=== PATIENT | male | born 1945 ===

== ENCOUNTER 2020-05-15 06:52 | Observation (INO) | payer MEDICARE, OTHER ==
[2020-05-15] MEDS ORDERED: Nitroglycerin 2% Ointment 1 INCH/1 GM Packet ONE (07:25)
[2020-05-15] MEDS ORDERED: Aspirin Chewable 81 MG TAB ONE ×2 (07:25→08:15)
[2020-05-15 07:33] LABS: #Basophils 0.1 thou/uL (0.0-0.2); #Eosinphils 0.5 thou/uL (0.0-0.7); #Lymphocytes 1.4 thou/uL (1.20-3.40); #Monocytes 0.6 thou/uL (0.11-0.59); #Neutrophils 7.7 thou/uL (1.40-6.50); %Basophils 0.7 % (0.0-1.0); %Eosinophils 4.5 % (0.0-10.0); %Lymphocytes 14.1 % (21.0-51.0); %Monocytes 5.4 % (0.0-10.0); %Neutrophils 75.3 % (42.0-75.0); Hemoglobin 15.8 g/dL (14.0-18.0); Mean Corpuscular HGB CONC 33.8 g/dL (32.0-36.0); Mean Corpuscular Hemoglobin 34.2 pg (27.0-31.0); Mean Platelet Volume 7.9 fL (7.4-10.4); Platelet Count 204 thou/uL (130-400); RBC Distribution Width 12.2 % (11.5-14.5); Red Blood Cell (RBC) Count 4.63 mill/uL (4.70-6.10); White Blood Cell (WBC) Count 10.2 thou/uL (4.8-10.8)
--- NOTE | 2020-05-15 07:41 | RAD ---
EXAM: Single view of the chest HISTORY: Chest pain COMPARISON: 08/13/2018 FINDINGS: Single view of the chest shows a mildly enlarged but stable cardiomediastinal silhouette. T here is no evidence of consolidation, mass, or pleural effusion. Degenerative changes are seen in the spine. IMPRESSION: No evidence of acute cardiopulmonary disease
[2020-05-15 07:54] LABS: ALT (SGPT) 33 U/L (8-55); AST (SGOT) 17 U/L (5-34); Albumin 4.4 g/dL (3.4-4.8); Alkaline Phosphatase 68 U/L (40-110); Anion Gap 13 mmol/L (10-20); BUN (Urea Nitrogen) 18 mg/dL (8.4-25.7); Bilirubin, Total 0.7 mg/dL (0.2-1.2); Calc. Creatinine Clearance 0 mL/min (70-130); Calcium 8.9 mg/dL (7.8-10.44); Carbon Dioxide 26 mmol/L (23-31); Chloride 102 mmol/L (98-107); Estimated GFR-MDRD 62; Globulin 2.4 g/dL (2.4-3.5); Glucose 115 mg/dL (83-110); Lipase 50 U/L (8-78); Protein, Total 6.8 g/dL (5.8-8.1); Sodium 137 mmol/L (136-145)
--- NOTE | 2020-05-15 09:25 | PDOC.HHP ---
Hospitalist HPI - History of Present Illness Chest pain History of Present Illness: PCP: Dr. Sol 75-year-old male with past medical history significant for hypertension, HLD, smoking and obstructive sleep apnea (on CPAP) presents to the emergency department for the above complaint. The patient reports acute onset of chest pain at 0400 this morning. Located substernal and radiating to bilateral jaws, described as chest tightness, 5/10 on the pain scale, with no exacerbating or alleviating factors. The patient took 2 Tylenol tablets with no relief of symptoms. Since the pain persisted, the patient came to the ER for further evaluation. Patient denies any heart palpitations, swelling to lower extremities. Denies any shortness of breath or wheezing. He has no history of asthma or COPD. No history of DVT/PE. Denies any illicit drug use. Denies abdominal pain, vomiting, diarrhea. Denies fever or chills. ED Course: VITAL SIGNS [facility] May 15, 2020 06:53 CLINT Leal Daniel BP: 148/76, Pulse: 72, Resp: 20, Temp: 97.9 (Oral), Pain: 4, O2 sat: 93 on (Room Air), Time: 05/15/2020 06:53. VITAL SIGNS [facility] May 15, 2020 07:08 CLINT Shea Ashlee BP: 129/76, Pulse: 71, Resp: 19, O2 sat: 96 on (Room Air), Time: 05/15/2020 07:08 Medication administration: Nitro-Bid transdermal 1 inch Topical Given 07:59 05/15/2020 aspirin oral 324 mg Oral Given 07:58 05/15/2020 Hospitalist ROS - Review of Systems Constitutional: denies: fever, chills Cardiovascular: reports: chest pain. denies: palpitations, edema, light headedness Gastrointestinal: denies: nausea, vomiting, abdominal pain, diarrhea, melena, hematochezia Genitourinary: denies: dysuria, hematuria Neurological: denies: weakness, incoordination, change in speech All other systems reviewed; all pertinent +/- noted in HPI/Subj - Medication Medications: 1. Bystolic 5 mg p.o. nightly 2. Losartan 100 mg p.o. every morning. 3. Atorvastatin 20 mg p.o. nightly. 4. Torsemide 10 mg p.o. nightly. Allergies: NKDA Hospitalist History - Past Medical History Source: patient, family, RN notes reviewed Cardiac: reports: HTN Pulmonary: reports: Other (JIMENEZ compliant with home CPAP) Heme/Onc: reports: Cancer (prostate) - Past Surgical History Past Surgical History: reports: Other (Left surgery, Radical prostectomy) - Social History Smoking Status: Current every day smoker (1/2 ppd) Alcohol: reports: Occassional Drugs: reports: none Living Situation: With Family Occupation: Retired Activity level: independent ambulation - Exam General Appearance: NAD, awake alert. negative: ill appearing General - other findings: Comfortable Eye: anicteric sclera ENT: normocephalic atraumatic Neck: supple, symmetric, no JVD Heart: RRR, no murmur, no gallops, no rubs, normal peripheral pulses Respiratory: CTAB, no wheezes, no rales, no ronchi, normal chest expansion, no tachypnea Gastrointestinal: soft, non-tender, normal bowel sounds, no bruit, no guarding, no rigidity Extremities: no cyanosis, no edema Extremities - other findings: Varicosities to bilateral lower extremities Skin: no rashes Neurological: normal sensation to touch, no weakness, no focal deficits Musculoskeletal: normal tone, normal strength Psychiatric: normal affect, A&O x 3 Hospitalist Results - Labs Result Diagrams: 05/15/20 07:16 05/15/20 07:16 Lab results: WBC 10.2 thou/uL (4.8-10.8) 05/15/20 07:16 Hgb 15.8 g/dL (14.0-18.0) 05/15/20 07:16 Hct 46.8 % (42.0-52.0) 05/15/20 07:16 MCV 101.0 fL (78.0-98.0) H 05/15/20 07:16 Plt Count 204 thou/uL (130-400) 05/15/20 07:16 Neutrophils % 75.3 % (42.0-75.0) H 05/15/20 07:16 Sodium 137 mmol/L (136-145) 05/15/20 07:16 Potassium 4.0 mmol/L (3.5-5.1) 05/15/20 07:16 Chloride 102 mmol/L (98-107) 05/15/20 07:16 Carbon Dioxide 26 mmol/L (23-31) 05/15/20 07:16 BUN 18 mg/dL (8.4-25.7) 05/15/20 07:16 Creatinine 1.15 mg/dL (0.7-1.3) 05/15/20 07:16 Glucose 115 mg/dL (83-110) H 05/15/20 07:16 Calcium 8.9 mg/dL (7.8-10.44) 05/15/20 07:16 Total Bilirubin 0.7 mg/dL (0.2-1.2) 05/15/20 07:16 AST 17 U/L (5-34) 05/15/20 07:16 ALT 33 U/L (8-55) 05/15/20 07:16 Alkaline Phosphatase 68 U/L (40-110) 05/15/20 07:16 Troponin I Less than 0.010 ng/mL (< 0.028) 05/15/20 07:16 B-Natriuretic Peptide Less than 10.0 pg/mL (0-100) 05/15/20 07:16 Serum Total Protein 6.8 g/dL (5.8-8.1) 05/15/20 07:16 Albumin 4.4 g/dL (3.4-4.8) 05/15/20 07:16 Lipase 50 U/L (8-78) 05/15/20 07:16 - EKG Interpretation EK lead EKG interpreted by Emergency Department Physician at time of study, 12 lead EKG shows normal sinus rhythm, Rate (beats per minute): 69, with no ectopics, Conduction with, complete right bundle branch block, ST segments normal, T waves normal, [place], left, Clinical impression:, non-specific EKG - Radiology Interpretation Chest x-ray Status: report reviewed by me Additional Comment: No acute process. Hospitalist H&P A/P - Problem (1) Chest pain Code(s): R07.9 - CHEST PAIN, UNSPECIFIED Status: Acute (2) HTN (hypertension) Code(s): I10 - ESSENTIAL (PRIMARY) HYPERTENSION Status: Acute (3) HLD (hyperlipidemia) Code(s): E78.5 - HYPERLIPIDEMIA, UNSPECIFIED Status: Acute (4) JIMENEZ (obstructive sleep apnea) Code(s): G47.33 - OBSTRUCTIVE SLEEP APNEA (ADULT) (PEDIATRIC) Status: Acute (5) Tobacco abuse Code(s): Z72.0 - TOBACCO USE Status: Acute (6) Prostate cancer Code(s): C61 - MALIGNANT NEOPLASM OF PROSTATE Status: Acute - Plan Plan: 75/M with PMH hypertension, JIMENEZ, smoking presents for chest pain. Admit to telemetry floor, observation status. Expected length of stay less than 2 midnights. #Chest pain Heart score 6, [place] PE score 0, consortium score 75% high risk. EKG normal sinus rhythm, RBBB, CXR negative for acute process Initial troponin negative, BNP less than 10 Trend troponins, check TSH, mag, FLP, UA N.p.o. after midnight. Continue aspirin and statin. Nuc med cardiac stress test in the a.m. #Hypertension Presented normotensive, normal pulse. Home medications include Bystolic, losartan, torsemide. We will hold Bystolic for now. We will give losartan and torsemide were reconciled by nursing. Monitor BP. #Hyperlipidemia Reports taking home dose of atorvastatin. We will give high-dose intensity statin. Check FLP. #JIMENEZ Compliant with home CPAP. to bring CPAP machine tonight for personal use. #Tobacco abuse Half pack per day for greater than 40 years. 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 #Prostate cancer Resolved. Radical prostatectomy (2009). SCDs for DVT prophylaxis. Pepcid for GI prophylaxis. Full code. Medical decision maker is his Ingrid at [phone]. Discussed case with Dr. Hardin.
[2020-05-15] MEDS ORDERED: Nitroglycerin 0.4 MG TAB (25 Tab Bottle) SL PRN (10:24)
[2020-05-15] MEDS ORDERED: Ondansetron PF 4 MG/2 ML Vial IVP PRN (10:27)
[2020-05-15] MEDS ORDERED: Acetaminophen 325 MG TAB PO PRN (10:27)
[2020-05-15] MEDS ORDERED: Ondansetron ODT 4 MG TAB PO PRN (10:27)
[2020-05-15 11:24] VITALS: BMI 38.3
[2020-05-15 13:02] LABS: Troponin I Less than 0.010 ng/mL (< 0.028)
[2020-05-15 13:46] LABS: Bacteria/HPF None Seen HPF (None Seen); Bilirubin Negative (Negative); Blood, Urine Negative (Negative); Clarity Clear (Clear); Glucose, Urine (Dipstick) Normal (Negative); Ketone, Urine Negative (Negative); Leukocyte 250 Leu/uL (Negative); Nitrite Negative (Negative); Protein, Urine (Dipstick) Negative (Neg-Trace); RBC/HPF 0-3 HPF (0-3); Specific Gravity, Urine 1.015 (1.002-1.036); Squamous Epithelial 0-3 HPF (0-3); Urobilinogen Normal mg/dL (Less than 2); pH, Urine 5.5 (5.0-9.0)
[2020-05-15 17:16] LABS: SARS-CoV-2 MS2 Positive; SARS-CoV-2 N Gene Negative; SARS-CoV-2 S Gene Negative; SARS-CoV-2 by NAA Not Detected (NotDetected); SARS-CoV-2 orf1ab Negative
[2020-05-15 17:56] LABS: Troponin I Less than 0.010 ng/mL (< 0.028)
[2020-05-15] MEDS: Famotidine 20 MG TAB PO SCH (20:23)
[2020-05-15] MEDS ORDERED: Atorvastatin Calcium 40 MG TAB PO SCH (21:00)
[2020-05-15] MEDS ORDERED: Sodium Chloride 0.9% 1,000 ML IV SCH (23:59)
[2020-05-16 05:07] LABS: #Basophils 0.1 thou/uL (0.0-0.2); #Eosinphils 0.5 thou/uL (0.0-0.7); #Lymphocytes 1.6 thou/uL (1.20-3.40); #Monocytes 0.6 thou/uL (0.11-0.59); #Neutrophils 4.3 thou/uL (1.40-6.50); %Basophils 0.7 % (0.0-1.0); %Eosinophils 7.4 % (0.0-10.0); %Lymphocytes 22.6 % (21.0-51.0); %Monocytes 7.8 % (0.0-10.0); %Neutrophils 61.6 % (42.0-75.0); Hemoglobin 14.7 g/dL (14.0-18.0); Mean Corpuscular HGB CONC 32.7 g/dL (32.0-36.0); Mean Corpuscular Hemoglobin 33.1 pg (27.0-31.0); Mean Platelet Volume 8.4 fL (7.4-10.4); Platelet Count 204 thou/uL (130-400); RBC Distribution Width 12.3 % (11.5-14.5); Red Blood Cell (RBC) Count 4.46 mill/uL (4.70-6.10)
[2020-05-16 05:18] LABS: Anion Gap 13 mmol/L (10-20); BUN (Urea Nitrogen) 15 mg/dL (8.4-25.7); Calc. Creatinine Clearance 142 mL/min (70-130); Calcium 8.6 mg/dL (7.8-10.44); Carbon Dioxide 26 mmol/L (23-31); Cardiac Risk 3.8 (Less than 4.5); Chloride 104 mmol/L (98-107); Cholesterol 127 mg/dl (< 200 Desired); Estimated GFR-MDRD 77; Glucose 119 mg/dL (83-110); HDL Cholesterol 33 mg/dL (>60 Neg Risk); LDL Cholesterol, Calculated 76 mg/dL; Potassium 4.4 mmol/L (3.5-5.1); Sodium 139 mmol/L (136-145); Triglycerides 92 mg/dL (Less than 150)
[2020-05-16 08:03] VITALS: TEMP 97.6
[2020-05-16] MEDS: Famotidine 20 MG TAB PO SCH (08:36)
[2020-05-16] MEDS ORDERED: Aspirin 81 mg Enteric Coated Tablet PO SCH (09:00)
[2020-05-16] MEDS ORDERED: Torsemide 10 MG TAB PO SCH (09:00)
[2020-05-16] MEDS ORDERED: Losartan 25 MG TAB PO SCH (09:00)
[2020-05-16] MEDS ORDERED: Regadenoson 0.4 MG/5 ML SYRINGE ONE (09:22)
--- NOTE | 2020-05-16 11:21 | NM ---
EXAM: CARDIAC SPECT HISTORY: Chest pain, hypertension, dyslipidemia, smoker TECHNIQUE: A myocardial perfusion scan was performed using the single isotope 2 day protocol with ritchie hnetium 99m sestamibi. [30 mCi] was injected intravenously for the rest exam followed by 30 mCi for the stress study. Pharmacologic stress with Lexiscan was monitored and interpreted by [facility] nurse practitioner FINDINGS: Homogeneous tracer distribution is seen in the myocardial segments on stress and rest image s without fixed or reversible defects. Gated SPECT LVEF: 68% Wall motion exam: Normal IMPRESSION: Normal myocardial perfusion scan
[2020-05-16 12:09] VITALS: BP 112/57
--- NOTE | 2020-05-17 02:01 | DIS ---
DATE OF ADMISSION: 05/15/2020 DATE OF DISCHARGE: 05/16/2020 HOSPITAL COURSE: Mr. Johnson is a 75-year-old male with a medical history of hypertension, tobacco abuse, who presented with chronic intermittent upper thorax pain radiating to the neck and some submandibulum. He was diagnosed with nonspecific chest pain. EKG, troponin, and stress test were negative. The patient had difficulty describing the pain other than it being episodes lasting 1 minute. 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 On the day of discharge, the patient's symptoms resolved. He was hemodynamically stable and had no complaints. PHYSICAL EXAMINATION: VITAL SIGNS: Blood pressure 112/57, pulse 65, respiratory rate 18, oxygen saturation 95% on room air, and temperature 97.6. GENERAL: Lying comfortably in bed. Awake and alert. Morbidly obese. HEENT: Normocephalic and atraumatic. CARDIAC: Regular rate and rhythm. No murmurs, gallops, or rubs. NECK: No JVD. LUNGS: Clear to auscultation bilaterally. No wheezing, rales or rhonchi. GI: Soft, nontender, and nondistended. Normal bowel sounds. MEDICATION LIST: New medications: No new medications. Modified medications: Torsemide was changed from 10 mg p.o. daily scheduled to 10 mg p.o. daily p.r.n. lower extremity swelling. Discontinued medications: No discontinued medications. Continued medications: 1. Nebivolol. 2. Losartan. Job ID: [id number]
== END 2020-05-16 12:45 | disposition home or self-care (01) ==
LOC: ERS 06:52 → 2SW 10:40
PROVIDERS: ADMIT Internal Medicine; ATTEND Internal Medicine
DX: R07.9 Chest pain, unspecified (principal); I10 Essential (primary) hypertension; E78.5 Hyperlipidemia, unspecified; F17.210 Nicotine dependence, cigarettes, uncomplicated; G47.33 Obstructive sleep apnea (adult) (pediatric); Z85.46 Personal history of malignant neoplasm of prostate; Z79.899 Other long term (current) drug therapy; Z88.0 Allergy status to penicillin; Z20.828 Contact with and (suspected) exposure to other viral communicable diseases
CPT/HCPCS: 71045; 78452; 80048; 80061; 81001; 82607; 82746; 83690; 83735; 83880; 84484 ×2; 85025; 93005; 93017; 94760 ×2; 99285; A9500; U0003; 36415; 80053; 84443; 87635; G0378; J2785

== ENCOUNTER 2021-09-19 21:22 | Emergency (ER) | payer OTHER, MEDICARE ==
[2021-09-19] MEDS ORDERED: Bacitracin 1 PK ONE (22:20)
== END 2021-09-19 23:04 | disposition home or self-care (01) ==
LOC: ERS 21:22
DX: S81.812A Laceration without foreign body, left lower leg, initial encounter (principal); I10 Essential (primary) hypertension; F17.210 Nicotine dependence, cigarettes, uncomplicated; Z79.899 Other long term (current) drug therapy
CPT/HCPCS: 99283